=== PATIENT | male | born 1960 | race Two or more races ===

== ENCOUNTER 2016-11-29 19:04 | Emergency (ER) | payer OTHER ==
[~2016-11-29] VITALS: Ht 160 cm; Wt 72.6 kg
[2016-11-29 19:32] VITALS: BP 173/100
[2016-11-29] MEDS ORDERED: TETANUS-DIPTH-ACEL PERTUSSIS 0.5ML SYRG IM ONE (22:30)
== END 2016-11-29 23:15 | disposition home or self-care (01) ==
LOC: ER 19:13
DX: S01.01XA Laceration without foreign body of scalp, initial encounter (principal); S00.93XA Contusion of unspecified part of head, initial encounter; W22.8XXA Striking against or struck by other objects, initial encounter; Y93.89 Activity, other specified; Y99.0 Civilian activity done for income or pay; Y92.69 Other specified industrial and construction area as the place of occurrence of the external cause
CPT/HCPCS: 12002; 90471; 90715